=== PATIENT | female | born 1990 | race Caucasian/White ===

== ENCOUNTER → 2023-01-01 14:52 | Outpatient (CLI) | payer BC, SELFPAY ==
--- NOTE | ~2023-01-01 | US_ITS ---
EXAMINATION: US soft tissue UE LT DATE: 01/01/2023 15:06 INDICATION: Left posterior shoulder lump. TECHNIQUE: Multiple grayscale and Doppler ultrasound images of the left upper extremity were obtained . COMPARISON: None FINDINGS: In the patient's area of concern posterior to the shoulder, there is a 2.5 x 0.7 cm subcuta neous mass that is isoechoic to normal subcutaneous fat with equal echotexture. IMPRESSION: 1. 2.5 cm subcutaneous mass posterior to left shoulder, likely a lipoma. Reviewed, dictated and finalized at location A. MANAGER
== END ==
PROVIDERS: PCP Family Medicine; Visit Provider Nurse Practitioner Family
DX: R22.32 Localized swelling, mass and lump, left upper limb (principal)
CPT/HCPCS: 76882

== ENCOUNTER 2023-05-08 12:06 | Emergency (ER) | payer BC, SELFPAY ==
--- NOTE | 2023-05-08 12:19 | ED.ABDPAIN ---
HPI - Abdominal Pain General Chief Complaint: Abdominal Pain Stated Complaint: abdominal pain Source: patient, family and RN notes reviewed History of Present Illness HPI narrative: 32-year-old female presents to urgent care with at side. Patient states on Friday she stood up from a sitting position and coughed at the same time, causing her to have a lightning bolt pain to her left lower quadrant. Patient states the pain radiated to her right lower quadrant and she has been having pain ever since. Patient states this pain is somewhat of a crampy pain. Patient states she was at work today when she vomited once and became very hot. Patient states she thought she was going to pass out. Patient's picked her up from work and brought her here. Patient denies any back pain, vaginal discharge, dysuria, diarrhea, constipation, fevers, or chills. Patient states she had 2 normal BMs today. Patient does have an IUD in which was confirmed this past January. Patient states it is around the time where she would have a menstrual period but states she never has symptoms like this. Related Data Allergies Allergy/AdvReac Type Severity Reaction Status Date / Time nickel Allergy Mild Unknown Verified 05/08/23 12:26 Review of Systems Review of Systems: Pertinent positives and pertinent negatives per HPI. [facility] Past Medical History Medical History (Updated 05/08/23 @ 12:33 by Demetria Esparza APRN) Acute non-recurrent maxillary sinusitis Anemia Encounter for wellness examination in adult Lump of skin of left upper extremity Surgical History Surgical History [place] teeth extracted (~2010) Social History Social History Smoking status: Never smoker Alcohol intake: current Alcohol use details: wine every other weekend Substance use: never Substance use type: does not use Lack of Transportation: No Lack of Food: Never True Current Housing: I Have Housing Concerned About Future Housing: No Difficulty Paying Gas/Electric Bills: No Difficulty Paying for Meds: No Currently Unemployed: No Education: Trade/Vocational Certificate Difficulty w/ Childcare or Family Care: No Comments At the time of my signature, I reviewed and agree with the nursing past medical, surgical, social, and family history. There is no relevant family history pertinent to the patient complaint. Exam Narrative: GENERAL: This is a well-nourished, well-developed patient, in no apparent distress. HEAD: normocephalic, atraumatic. EYES: Sclera clear/white. Vision is grossly intact. EARS: External ears normal, auditory canals clear and without drainage. Hearing grossly intact. NOSE: External nose normal with no obvious nasal discharge, nares without redness, no rhinorrhea. THROAT: Mucous membranes moist, posterior pharynx clear. NECK: Neck supple, non-tender without lymphadenopathy, masses or thyromegaly. CARDIOVASCULAR: Regular rate and rhythm without murmurs, gallops, or rubs. RESPIRATORY: Clear to auscultation. Breath sounds equal bilaterally. No wheezes, rales, or rhonchi. GASTROINTESTINAL: Abdomen soft, tender to LLQ, mid lower, and RLQ abdomen. Pt feels pain in lower abdomen with epigastric palpation. SKIN: warm, intact with no suspicious lesions or rash, good texture and turgor. NEURO: awake, alert, and oriented to person, place and time. There were no obvious focal neurologic abnormalities. EXTREMITIES: No clubbing, cyanosis, or edema. No joint tenderness, effusion, or edema noted. BACK: Nontender without deformity or crepitus. No flank tenderness. Course Course Level of Care: Express Care Visit Vital Signs Vital signs: Vital Signs Temperature 98.2 F 05/08/23 12:38 Pulse Rate 97 05/08/23 12:38 Respiratory Rate 18 05/08/23 12:38 Blood Pressure 121/62 05/08/23 12:38 Pulse Oximetry 100
[2023-05-08 12:38] VITALS: BP 121/62; PULSE 97; RESP 18; TEMP 36.8; O2SAT 100
== END 2023-05-08 12:42 | disposition short-term general hospital (02) ==
PROVIDERS: Emergency Provider Nurse Practitioner Family; PCP Family Medicine
DX: R10.32 Left lower quadrant pain (principal); R10.31 Right lower quadrant pain; R10.30 Lower abdominal pain, unspecified
CPT/HCPCS: 81003; 81025; 99212; G0463

== ENCOUNTER 2023-05-08 12:53 | Emergency (ER) | payer BC, SELFPAY ==
--- NOTE | ~2023-05-08 | CT_ITS ---
EXAMINATION: CT abdomen pelvis w con DATE: 05/08/2023 14:06 INDICATION: Lower abdominal pain TECHNIQUE: Computed tomography (CT) of the abdomen and pelvis was performed with 100 cc Omnipaque 350 intravenous contrast. The dose-length product was 448.16 mGy-cm. Automated exposure control and iter ative reconstruction technique were employed. COMPARISON: None. FINDINGS: Lung bases are unremarkable. Heart size normal. Bilateral breast implants are present. No s ignificant pleural or pericardial effusion. There is abnormal thickening of the splenic flexure of th e colon with associated diverticula and surrounding inflammatory change, consistent with acute divert iculitis. No evidence for perforation or mass. The liver, spleen, pancreas, adrenal glands and kidney s are unremarkable. There is a small fat-containing umbilical hernia. No significant vascular abnorma lity. There is an IUD in the endometrium. No abnormal pelvic masses or fluid collections. Bladder is unremarkable. No lymphadenopathy. Gallbladder is present. IMPRESSION: 1. Acute uncomplicated diverticulitis of the colon at the splenic flexure. Reviewed, dictated and finalized at location L.
[2023-05-08 12:56] VITALS: BP 112/69; PULSE 90; RESP 18; TEMP 36.7; O2SAT 100
[2023-05-08 13:18] LABS: Basophils Percent Auto 0.2 % (0.2-1.2); Eosinophils Absolute Auto 0.1 K/mm3 (0-0.3); Eosinophils Percent Auto 0.8 % (0-4.4); Hemoglobin 14.1 g/dL (12.0-15.0); Immature Granulocyte Absolute 0.05 K/mm3 (0.00-0.031); Immature Granulocyte Percent A 0.3 % (0-0.5); Lymphocytes Absolute Auto 0.91 K/mm3 (0.9-3.2); Lymphocytes Percent Auto 5.5 % (18.3-44.2); Mean Corpuscular HGB Conc 33.6 g/dl (32-36); Mean Corpuscular Hemoglobin 31.5 pg (26-34); Mean Platelet Volume 8.8 fl (7.4-10.4); Monocytes Absolute Auto 0.9 K/mm3 (0.1-0.6); Monocytes Percent Auto 5.6 % (2.6-8.5); Neutrophils Absolute Auto 14.5 K/mm3 (1.3-6.7); Neutrophils Percent Auto 87.6 % (45.5-73.1); Platelet Count Result 242 k/mm3 (150-375); Red Blood Count 4.47 M/mm3 (4.2-5.4); Red Cell Distribution Width 11.9 % (11.5-14.5); White Blood Count 16.6 K/mm3 (4.5-10.0)
[2023-05-08 13:30] LABS: Alanine Aminotransferase 21 U/L (6-35); Albumin Level 4.5 g/dL (3.5-5.1); Alkaline Phosphatase 63 U/L (38-126); Anion Gap 8 mmol/L (8-16); Aspartate Amino Transferase 22 U/L (14-36); Bilirubin,Total 1.3 mg/dL (0.2-1.3); Blood Urea Nitrogen 12 mg/dL (7-17); Calcium 9.4 mg/dL (8.4-10.2); Carbon Dioxide 29 mmol/L (22-30); Chloride 100 mmol/L (98-107); Estimated CRCL calculation 92 ml/min; Estimated Glomerular Filt Rate > 60; Glucose 107 mg/dL (65-110); Lipase 47 U/L (23-300); Potassium 4.3 mmol/L (3.4-5.0); Sodium 137 mmol/L (137-145)
[2023-05-08 13:45] LABS: Appearance Urine Cloudy (Clear); Bacteria Urine 1+ /hpf; Bilirubin Urine Negative (Negative); Blood Urine Trace (Negative); Color Urine Yellow (Yellow); Glucose Urine UA Negative (Negative); Ketones Urine Negative (Negative); Leukocyte Esterase Ur 1+ LEU/UL (Negative); Nitrate Urine Negative (Negative); Non Pathogenic Casts 0-2; Protein Urine Negative (Negative); Specific Grav Ur 1.023 (1.001-1.035); Squamous Epithelial Cell Urine Moderate /hpf (Few); Urobilinogen Urine 0.2 mg/dL (<2.0)
[2023-05-08 13:47] LABS: Add Urine Microscopic? YES
[2023-05-08] MEDS: KETOROLAC 30 MG/ML VIAL (*BKC) IV PUSH (13:56)
[2023-05-08] MEDS: ONDANSETRON INJ 4 MG/2 ML VIAL IV PUSH (13:56)
[2023-05-08] MEDS: SODIUM CHLORIDE 0.9% IV 1,000 ML 999 ML IV CONT (13:56)
[2023-05-08 14:01] VITALS: BP 127/69; PULSE 113; RESP 17; O2SAT 97
--- NOTE | 2023-05-08 14:02 | PC.NURSE ---
Pt to CT scan via stretcher at this time.
--- NOTE | 2023-05-08 14:06 | ED.ABDPAIN ---
HPI - Abdominal Pain General Chief Complaint: Abdominal Pain Stated Complaint: lower abdominal since Friday Time Seen by Provider: 05/08/23 13:39 Source: patient, RN notes reviewed and old records reviewed Mode of arrival: ambulatory Limitations: no limitations History of Present Illness HPI narrative: This is a 32 year old female with history of ovarian cyst who presents for evaluation of left lower abdominal pain. Patient states she developed sudden onset sharp left lower abdominal pain 2 days ago. She has continued to have pain and lower abdominal cramping. She reports her pain worsened today. She states she does not normally experience pelvic cramping and she has IUD. Her pain is so severe it is making her feel like she is going to pass out. She has had nausea and vomiting with her pain. She denies fever, chills, dysuria, abnormal vaginal discharge or urinary symptoms. She reports history of ruptured ovarian cyst when she was younger. Her tripe scraper is Dr. Blackwell. Related Data Allergies Allergy/AdvReac Type Severity Reaction Status Date / Time nickel Allergy Mild Unknown Verified 05/08/23 12:26 Review of Systems Constitutional: Constitutional: Denies weakness Cardiovascular: Cardiovascular: Denies syncope, Denies rapid heart rate, Denies irregular heart rhythm, Denies leg edema and Denies dyspnea Respiratory: Respiratory: Denies chest congestion, Denies hemoptysis, Denies excessive phlegm production and Denies dyspnea Gastrointestinal: Gastrointestinal: Reports abdominal pain, Denies hematochezia, Denies diarrhea, Reports nausea and Reports vomiting Genitourinary: Genitourinary: Denies abnormal vaginal bleeding, Denies hematuria, Denies dysuria and Reports pelvic pain Musculoskeletal: Musculoskeletal: Denies joint swelling, Denies loss of height and Denies muscle weakness Neurologic: Denies syncope, Denies focal weakness and Denies weakness PMFSH Past Medical History Medical History Acute non-recurrent maxillary sinusitis Anemia Encounter for wellness examination in adult Lump of skin of left upper extremity Surgical History Surgical History [place] teeth extracted (~2010) Social History Social History Smoking status: Never smoker Alcohol intake: current Alcohol use details: wine every other weekend Substance use: never Substance use type: does not use Lack of Transportation: No Lack of Food: Never True Current Housing: I Have Housing Concerned About Future Housing: No Difficulty Paying Gas/Electric Bills: No Difficulty Paying for Meds: No Currently Unemployed: No Education: Trade/Vocational Certificate Difficulty w/ Childcare or Family Care: No Exam Const: General: no acute distress and alert Nutritional Appearance: well nourished Orientation/consciousness: patient oriented x3 HENMT: Head: normal to inspection Mouth: Yes Normal oral and palatal mucosa present, Yes lip normal and Yes moist mucous membranes Eyes: EOM: EOMs intact bilaterally Resp: Effort & Inspection: normal respiratory effort Auscultation: clear to auscultation bilaterally Cardio: Rate: regular rate Rhythm: regular rhythm Heart sounds: no murmurs GI: GI Palp: Yes Soft to palpation, Yes Tenderness to palpation present (GI) (lower abdomen, LLQ, suprapubic), No Guarding due to palpation present (GI), No Rigid due to palpation and No Hernia present Auscultation: normal bowel sounds Back/Spine/Pelvis: Back: no CVA tenderness Skin: General skin exam: normal color Rashes: no rashes Wounds: no wounds Neuro: General: patient oriented x3, moves all extremities and CN's II-XI intact bilaterally Extrem: General: normal to inspection Psych: Mental Status: mental status grossly normal Affect: normal affect Attitude: cooperative Course
[2023-05-08] MEDS: metroNIDAZOLE 500 MG/ISO 100ML 500 MG/100 ML BAG 100 MG IVPB (15:03)
[2023-05-08 16:15] VITALS: BP 100/68; PULSE 89; RESP 18; O2SAT 98
== END 2023-05-08 16:35 | disposition home or self-care (01) ==
PROVIDERS: Emergency Medicine; Emergency Provider General Practice; PCP Family Medicine
DX: K57.32 Diverticulitis of large intestine without perforation or abscess without bleeding (principal); Z97.5 Presence of (intrauterine) contraceptive device; Z86.2 Personal history of diseases of the blood and blood-forming organs and certain disorders involving the immune mechanism
CPT/HCPCS: 36415; 74177; 80053; 81001; 81003; 81025; 83690; 85025; 87086; 87088; 96361; 96365; 96367; 96375; 99284; J0696; J1885; J2405; J7030; Q9967

== ENCOUNTER 2023-12-31 01:28 | Day surgery (SDC) | payer BC, SELFPAY ==
[2023-12-29 10:05] VITALS: BMI 27.4
--- NOTE | 2023-12-29 10:09 | PC.NURSE ---
Report to the Outpatient Waiting Room, entrance under the green pavilion located off [facility], at time 1130 on date 12/31/23. Planned Procedure Time: 1330. Time changes happen often and if your time is changed the preop area will call you the afternoon before. - You and your visitor will be asked to self-screen and do not enter if you have any COVID symptoms. - A mask is optional within the hospital at this time. Patients may have clear liquids (water, carbonated beverages, clear teas, apple juice) until 3 hours prior to surgery with a maximum of 20 ounces. - No food from midnight until time of surgery Take the following medications with a SIP of water the morning of surgery: ESCITALOPRAM, INHALER IF NEEDED DO NOT STOP ANY OF YOUR OTHER PRESCRIPTION MEDICATIONS PRIOR TO SURGERY ?EXCEPT THE FOLLOWING Medications to discontinue per physician: N/A Date to take last dose: N/A Please no make-up, nail albanian, hairspray, perfume, deodorant, or body powder the day of surgery. No jewelry (including any body piercings) or valuables the day of surgery, leave them at home. Please take a shower or bath the night before, or the morning of, surgery with an antibacterial soap. Wear comfortable, loose fitting clothing. - Jewelry must be removed prior to entering the operating room. Rings and piercings that are not removed may be cut off. - The hospital will not accept responsibility for valuables. - Please leave all valuables, including medications, at home the day of surgery. If you are going home after surgery, a licensed log truck driver must drive you home. - NO public transportation without another adult if you receive anesthesia. - We recommend that an adult stay with you for 24 hours following discharge. - We also recommend that you do not drive, make important decision, drink alcoholic beverages, or take any drugs that were not prescribed by your health care provider for at least 24 hours after your discharge time. Follow any additional instructions given to you from your surgeon. If you or anyone in your household have experienced Covid symptoms in the past week, please notify your surgeon or the nurse liaison at the phone number below for possible testing. Telephone instructions given to PT - REJI KELLEY and asked if any additional questions and then verbalized understanding. Patient advised to call surgeon office or pre surgery nurse liaison [phone] if any additional questions.
--- NOTE | 2023-12-31 11:08 | P.HP_ITS ---
H&P: HPI History of Present Illness Date/Time: 12/31/23 11:08 Chief Complaint: L shoulder mass Narrative: Su is a 33 y/o female who presents with a left shoulder mass at the request of Dr. Berrios. She first noticed the mass this spring. She states the mass has increased in size. She denies redness, drainage and signs of infection. She also denies injuring herself. Review of Systems Review of Systems: All systems reviewed & are unremarkable except as noted in HPI and below PMFSH Past Medical History Medical History Acute non-recurrent maxillary sinusitis Anemia Anxiety BMI 28.0-28.9,adult Encounter for wellness examination in adult Lump of skin of left upper extremity Surgical History Surgical History [place] teeth extracted (~2010) Social History Social History Years smoked: 2 Smoking status: Former smoker Smoking end date: 11/24/07 Alcohol intake: current Drinks per week: 2 Alcohol use details: wine every other weekend Substance use: never Substance use type: does not use Lack of Transportation: No Lack of Food: Never True Current Housing: I Have Housing Concerned About Future Housing: No Difficulty Paying Gas/Electric Bills: No Difficulty Paying for Meds: No Currently Unemployed: No Education: Trade/Vocational Certificate Difficulty w/ Childcare or Family Care: No Living arrangements: with family Spiritual care concerns: No Meds Home Medications and Allergies Home Medications Medication Instructions Recorded Confirmed Type albuterol sulfate 90 mcg/actuation 1 - 2 puff inhalation Q4H PRN 08/08/23 12/29/23 Rx aerosol inhaler shortness of breath or wheezing #8.5 grams escitalopram oxalate 5 mg tablet 5 mg PO DAILY #90 tabs 08/08/23 12/29/23 Rx (Lexapro) phentermine 37.5 mg tablet 37.5 mg PO DAILY #30 tabs 08/08/23 12/29/23 Rx Allergies Allergy/AdvReac Type Severity Reaction Status Date / Time nickel Allergy Mild Unknown Verified 12/29/23 10:04 Exam Const: General: cooperative, comfortable and no acute distress Resp: Auscultation: clear to auscultation bilaterally Cardio: Rate: regular rate Rhythm: regular rhythm GI: Inspection: normal to inspection Skin: Other: L shoulder sq mass measuring 4x3 cm, well circumscribed, c/w lipoma Assessment and Plan Assessment and plan (1) Mass of skin of left shoulder: Code(s): R22.32 - Localized swelling, mass and lump, left upper limb Status: Acute Assessment and Plan: excisional biopsy in OR today
--- NOTE | 2023-12-31 11:11 | WPDHPUPDATE1 ---
History and Physical Update Update Date/Time: 12/31/23 11:11 History and Physical has been reviewed, including an updated exam of the patient. There are NO changes in the patient's condition. Risks, benefits, and alternatives have been discussed and questions answered. Patient agrees to proceed with procedure.
--- NOTE | 2023-12-31 12:06 | P.PNAN_ITS ---
Anes - Initial Pre Proc Eval Procedure: Operation Date: 12/31/23 13:30 Proposed Procedures p Excisional Biopsy of Left Shoulder Mass - Harirett Taylor MD Date/Time: 12/31/23 12:06 Surgeon: Harriett Taylor MD Pre Op Diagnosis: Left Shoulder Mass Patient Data Age: 33 Gender: F Height: 1.68 m Weight: 77.1 kg Allergies Allergy/AdvReac Type Severity Reaction Status Date / Time nickel Allergy Mild Hives Verified 12/31/23 11:58 Home Medications Medication Instructions Recorded Confirmed Type albuterol sulfate 90 mcg/actuation 1 - 2 puff inhalation Q4H PRN 08/08/23 12/29/23 Rx aerosol inhaler shortness of breath or wheezing #8.5 grams escitalopram oxalate 5 mg tablet 5 mg PO DAILY #90 tabs 08/08/23 12/31/23 Rx (Lexapro) semaglutide 0.25 mg or 0.5 mg (2 0.5 mg subcut WEEKLY 12/31/23 12/31/23 History mg/1.5 mL) subcutaneous pen injector Patient hx anesthesia problems: none Family hx anesthesia problems: none Results Review: All pre-operative results and documents have been reviewed as part of the pre- operative evaluation. FOR[facility]LY [facility], [facility] Past Medical History Medical History Acute non-recurrent maxillary sinusitis Anemia Anxiety BMI 28.0-28.9,adult Encounter for wellness examination in adult Lump of skin of left upper extremity Surgical History Surgical History [place] teeth extracted (~2010) Social History Social History Years smoked: 2 Smoking status: Former smoker Smoking end date: 11/24/07 Alcohol intake: current Drinks per week: 2 Alcohol use details: wine every other weekend Substance use: never Substance use type: does not use Lack of Transportation: No Lack of Food: Never True Current Housing: I Have Housing Concerned About Future Housing: No Difficulty Paying Gas/Electric Bills: No Difficulty Paying for Meds: No Currently Unemployed: No Education: Trade/Vocational Certificate Difficulty w/ Childcare or Family Care: No Living arrangements: with family Spiritual care concerns: No Anes - Eval Final PreProcedure Day of Procedure 12/31/23 12:06 Patient weight: overweight Heart: regular rate and rhythm Lungs: clear to auscultation Airway: Mallampati scale class II Neurological: alert and oriented Last oral intake: >/= 8 hours ASA classification: II Emergent: no Anesthetic plan: proceed Anesthesia type and monitoring: general GIVS and standard monitoring Results Review: All pre-operative results and documents have been reviewed as part of the pre- operative evaluation. Informed Consent: The patient's anesthetic plan and its attendant risks and benefits were discussed with the patient/family/POA. Questions were solicited and answers provided to the satisfaction of the patient/family/POA.
[2023-12-31] MEDS: LACTATED RINGERS 1,000 ML 30 ML IV CONT (12:13)
[2023-12-31 12:18] VITALS: BP 132/78; PULSE 61; RESP 16; TEMP 36.6; O2SAT 100
[2023-12-31] MEDS: ceFAZolin 2 GM/D5W 50 ML 2 GM/50 ML BAG IVPB (12:54)
[2023-12-31] MEDS: BUPIVACAINE/EPINEPHRINE 0.5% 50 ML VIAL 30 ML INFILTRATE (13:09)
--- NOTE | 2023-12-31 13:26 | W.PM.PROC2 ---
Procedure Note - Detailed Date of Procedure 12/31/23 Pre-op Diagnosis Left Shoulder Mass Post-op Diagnosis Same Procedure Performed excisional biopsy left shoulder mass most consistent with lipoma measuring 4 x 3 cm Surgeon Harriett Taylor MD Anesthesia General and Local Indications 33-year-old female presenting with a left shoulder mass measuring 4 x 3 cm. The patient reports the mass has been slowly enlarging in size and has become somewhat symptomatic. Findings 4 x 3 cm left shoulder subcutaneous mass most consistent with lipoma Description of Procedure The patient was taken to the operating room and placed in the supine position. After adequate induction of GIVS anesthesia the patient was prepped and draped in the normal sterile fashion. A time-out was then done to verify the patient's identity, as well as the procedure being performed. I began by localizing the area in and around this mass in the left posterior shoulder. This mass was noted to measure approximately 4 x 3 cm. I then made an incision over the mass and gained access to the mass in the subcutaneous tissue. A well-circumscribed mass was noted in the subcutaneous tissue, most consistent with lipoma. Using both blunt and sharp dissection, I was able to excise the mass in full. Will now be sent to pathology for further review. I then gained hemostasis with the Bovie cautery. No other pathology was noted. I then closed the subcutaneous tissue with 3-0 Vicryl suture. The skin was closed with 4-0 Monocryl subcuticular suture. The patient tolerated the procedure well and was alert and awake in the operating room postoperatively. She will be transferred to the recovery room in stable condition. Estimated Blood Loss 5 Drains No Packing No Pathology Yes Complications No immediate complications Condition Stable Disposition PACU [facility] Billing Surgery - Charge Forward: Surgery Billing
[2023-12-31 13:30] VITALS: BP 107/57; PULSE 78; RESP 12
[2023-12-31 13:54] VITALS: BP 103/73; PULSE 73; RESP 16
[2023-12-31 14:11] VITALS: BP 104/61; PULSE 84; RESP 16
== END 2023-12-31 14:15 | disposition home or self-care (01) ==
PROVIDERS: PCP Family Medicine; Visit Provider Surgery
PROC: (CPT 23071; principal; 2023-12-31 13:30)
DX: D17.22 Benign lipomatous neoplasm of skin and subcutaneous tissue of left arm (principal); F41.9 Anxiety disorder, unspecified; D64.9 Anemia, unspecified; Z79.51 Long term (current) use of inhaled steroids; Z79.85 Long-term (current) use of injectable non-insulin antidiabetic drugs; Z87.891 Personal history of nicotine dependence
CPT/HCPCS: 23071; 88304; J0690; J2250; J2405; J3010; J7120

== ENCOUNTER 2024-12-08 15:48 | Emergency (ER) | payer BC, SELFPAY ==
--- NOTE | ~2024-12-08 | XR_ITS ---
EXAMINATION: XR chest 2V 12/08/2024 16:15 INDICATION: Cough for 5 days PROCEDURE: 2 view chest COMPARISON: 05/03/2013 FINDINGS: The lungs are clear. The cardiomediastinal silhouette is within normal limits. There are no pleural effusions. There is no pneumothorax suspected. There are breast implants. IMPRESSION: 1: NO ACUTE CARDIOPULMONARY DISEASE. Reviewed, dictated and finalized at location A. RN
[2024-12-08 15:54] VITALS: BP 131/84; PULSE 87; RESP 18; TEMP 36.1; O2SAT 100
--- NOTE | 2024-12-08 16:09 | ED_ITS ---
HPI - General Adult General Chief complaint: Upper Respiratory Infection Stated complaint: sob and coughing Source: patient Mode of arrival: ambulatory Limitations: no limitations History of Present Illness HPI narrative: Patient presents for evaluation of sick symptoms. Symptom onset 5 days ago. She reports productive cough of clear sputum, shortness of breath, and pleuritic chest and back pain. No fever, chills, nausea, vomiting or diarrhea. She is not aware of any specific recent sick contacts although she was recently on a flight back from [facility]. She has an underlying history of asthma. she has been using albuterol inhaler and nebulizer solution. Symptoms persist. She does not smoke cigarettes but does smoke marijuana. She was given azithromycin by her primary provider which she has been taking as directed. Related Data Allergies Allergy/AdvReac Type Severity Reaction Status Date / Time nickel Allergy Mild Hives Verified 12/08/24 15:50 Review of Systems Review of Systems: CONSTITUTIONAL: Denies fever, chills, or sweats. EYES: Denies visual changes, redness, or discharge. ENT: Denies rhinorrhea, congestion, sore throat, or otalgia. CARDIOVASCULAR: Denies chest pain, palpitations, or edema. RESPIRATORY: Reports cough, SOB and pleuritic chest and back pain. GASTROINTESTINAL: Denies abdominal pain, nausea, vomiting, or diarrhea. GENITOURINARY: Denies dysuria or hematuria. SKIN: Denies rash or itching. MUSCULOSKELETAL: Denies back pain, joint pain, or myalgia. NEUROLOGIC: Denies headache, numbness, dizziness, or weakness. PSYCHIATRIC: Denies anxiety or depression. [facility] Past Medical History Medical History Diverticulitis of colon Asthma Anxiety BMI 28.0-28.9,adult Lump of skin of left upper extremity Acute non-recurrent maxillary sinusitis Encounter for wellness examination in adult Anemia Surgical History Surgical History Hx of excision of mass excisional biopsy left shoulder mass most consistent with lipoma measuring 4 x 3 cm 12/31/23 [facility] [place] teeth extracted (~2010) Family History Family History Mother Family history non-contributory Social History Social History Years smoked: 2 Smoking status: Former smoker Smoking end date: 11/24/07 Alcohol intake: current Drinks per week: 2 Alcohol use details: wine every other weekend Substance use: never Substance use type: does not use Lack of Transportation: No Lack of Food: Never True Current Housing: I Have Housing Concerned About Future Housing: No Difficulty Paying Gas/Electric Bills: No Difficulty Paying for Meds: No Currently Unemployed: No Education: Trade/Vocational Certificate Difficulty w/ Childcare or Family Care: No Living arrangements: with family Spiritual care concerns: No Exam Narrative: GENERAL: Well-appearing, well-nourished, and in no acute distress. HEAD: Normocephalic, atraumatic. EYES: PERRLA and EOMI. ENT: Nares clear, no rhinorrhea or epistaxis. Mucous membranes moist. Oropharynx without tonsillar hypertrophy exudate or other lesions. Bilateral TMs pearly torres nonbulging NECK: Supple. No adenopathy or masses. No carotid bruits or JVD CHEST: Clear to auscultation. No respiratory distress. No wheezes rales or rhonchi HEART: Regular rate and rhythm. No murmur heard. Normal peripheral pulses. ABDOMEN: Soft, nontender, nondistended, normal active bowel sounds. EXTREMITIES: Normal range of motion. No edema. SKIN: Warm, dry, no rash. NEURO: No focal deficits. Alert and oriented x3. PSYCH: Normal mood and affect. Course Course Emergency Course: This is a 34-year-old patient with history of asthma the presented for respiratory symptoms. She declined COVID and flu testing. CXR obtained and n ormal. She is already on azithromycin. Will add prednisone. Follow up with primary provider. Saturations 100% on RA and she is not in any distress. She was advised to go to the ER for SOB or worsening symptoms. Pt in agreement with plan of care. Level of Care: Express Care Visit Vital Signs Vital signs: Vital Signs Temperature 36.1 C L 12/08/24 15:54 Pulse Rate 87 12/08/24 15:54 Respiratory Rate 18 12/08/24 15:54 Blood Pressure 131/84 12/08/24 15:54 Pulse Oximetry 100 12/08/24 15:54 Oxygen Delivery Room Air 12/08/24 15:54 Temperature 36.1 C L 12/08/24 15:54 Pulse Rate 87 12/08/24 15:54 Respiratory Rate 18 12/08/24 15:54 Blood Pressure 131/84 12/08/24 15:54 Pulse Oximetry 100 12/08/24 15:54 Oxygen Delivery Room Air 12/08/24 15:54 Medical Decision Making Vital Signs Vital Signs: Vital Signs Temperature 36.1 C L 12/08/24 15:54 Pulse Rate 87 12/08/24 15:54 Respiratory Rate 18 12/08/24 15:54 Blood Pressure 131/84 12/08/24 15:54 Pulse Oximetry 100 12/08/24 15:54 Oxygen Delivery Room Air 12/08/24 15:54 Temperature 36.1 C L 12/08/24 15:54 Pulse Rate 87 12/08/24 15:54 Respiratory Rate 18 12/08/24 15:54 Blood Pressure 131/84 12/08/24 15:54 Pulse Oximetry 100 12/08/24 15:54 Oxygen Delivery Room Air 12/08/24 15:54 Imaging Data Radiologist's impression: EXAMINATION: XR chest 2V 12/08/2024 16:15 INDICATION: Cough for 5 days PROCEDURE: 2 view chest COMPARISON: 05/03/2013 FINDINGS: The lungs are clear. The cardiomediastinal silhouette is within normal limits. There are no pleural effusions. There is no pneumothorax suspected. There are breast implants. IMPRESSION: 1: NO ACUTE CARDIOPULMONARY DISEASE. Discharge Plan Discharge Clinical Impression: Asthma exacerbation, Upper respiratory infection, viral Patient Disposition: Home, Self-Care Condition: Stable Instructions: Antibiotic Form, Asthma (ED), Viral Syndrome (ED) Patient Language: Turkmen Prescriptions: New prednisone 50 mg tablet 50 mg PO DAILY Qty: 5 0RF No Action albuterol sulfate 90 mcg/actuation HFA aerosol inhaler 1 - 2 puff inhalation Q4H PRN (Reason: shortness of breath or wheezing) Qty: 8.5 5RF bupropion HCl [Wellbutrin XL] 150 mg tablet extended release 24 hr 150 mg PO QAM Qty: 30 5RF escitalopram oxalate [Lexapro] 5 mg tablet 5 mg PO DAILY Qty: 30 11RF azithromycin 250 mg tablet See Rx Instructions PO .COMPLEX Qty: 6 0RF Rx Instructions: take 500 mg today (day 1), then 250 mg for 4 days (days 2-5) PO Follow-up/Referrals: Chi Berrios MD [Primary Care Provider] - Time of Disposition: 16:29
== END 2024-12-08 16:31 | disposition home or self-care (01) ==
PROVIDERS: Emergency Provider Nurse Practitioner; PCP Family Medicine
DX: J45.901 Unspecified asthma with (acute) exacerbation (principal); J06.9 Acute upper respiratory infection, unspecified; J45.909 Unspecified asthma, uncomplicated; F12.90 Cannabis use, unspecified, uncomplicated; Z87.891 Personal history of nicotine dependence
CPT/HCPCS: 71046; 99213; G0463

== ENCOUNTER 2025-01-02 10:16 | Emergency (ER) | payer BC, SELFPAY ==
--- OUTSIDE RECORDS SUMMARY | 2025-01-02 10:18 | XMS_ITS | Referral Summary ---
Author Organization [facility] [employer] [facility] Address [address] [place] [address] Care Team Providers Care Cargo Service Agent Name Role Phone Nithin Merida MD Primary Care Provider [phone] [facility],non-owned Affiliates and Associated Physician Practices is amultiple site organization consisting of ambulatory clinics and hospital sitesin [place], [place], [place] and [place]. This disclosure is being madepursuant to the Care Everywhere program and may not contain all information available regarding this patient. Last updated 18.[facility] Allergies Active Allergy Reactions Criticality Noted Date Comments Nickel Rash,Itching High 03/14/2019 Nickel Rash,Itching Medium 03/14/2019 Medications * Be aware that medications may not be up to date on this document. Alwaysverify current medications with the patient. 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 Resolved Problems Problem Noted Date Diagnosed Date Resolved Date Pneumonia 03/15/2019 04/14/2019 Overview (03/15/2019): CAP incidentally noted on CXR Azithromycin 500mg QD x3d Premature labor 03/14/2019 03/15/2019 Immunizations Name Administration Dates Next Due TDAP (7yrs+) 03/16/2019 Social History Tobacco Use Types Packs/Day Years Used Date Smoking Tobacco: Former Cigarettes Smokeless Tobacco: Never Tobacco Cessation:Counseling Given: Yes Alcohol Use Standard Drinks/Week Comments No 0 (1 standard drink = 0.6 oz pur e alcohol) Sex and Gender Information Value Date Recorded Sex Assigned at Not on file Gender Identity Not on file Sexual Orientation Not on file Last Filed Vital Signs Vital Sign Reading Time Taken Comments Blood Pressure 120/70 03/17/2019 9:30 AM CDT Pulse 84 03/17/2019 9:30 AM CDT Temperature 36.8 C (98.2 F) 03/17/2019 9:30 AM CDT Respiratory Rate 18 03/17/2019 9:30 AM CDT Oxygen Saturation 96% 03/16/2019 11:30 PM CDT Inhaled Oxygen Concentration - - Weight 82 kg (180 lb 11.2 oz) 03/14/2019 4:35 PM CDT Height 167.6 cm (5' 6 ) 03/14/2019 4:35 PM CDT Body Mass Index 29.17 03/14/2019 4:35 PM CDT Functional Status Functional Status Response Date of Assess ment Is person deaf or have serious hearing difficult y? No 03/17/2019 Is person blind or have serious difficulty seein g? No 03/17/2019 Does person have serious dif ficulty walking/climbing stairs? No 03/17/2019 Does person have difficulty dressing/bathing? No 03/17/2019 Does person have difficulty doing errands alone? No 03/17/2019 Cognitive Status Response Date of Assessm ent Does person have difficulty concentrating/remembering/making decisions? No 03/17/2019 Plan of Treatment Not on file Advance Directives * Full Code (Latest Code Status on File) Date Activated Date Inactivated Comments 03/14/2019 4:29 PM 03/17/2019 4:06 PM * Full Code Date Activated Date Inactivated Comments 03/14/2019 12:05 AM 03/14/2019 4:56 PM Care Teams Cargo Service Agent Relationship Specialty Start Date End Date Nithin Merida MD [address] [place] [address] PCP - General Family Medicine 03/14/19
--- OUTSIDE RECORDS SUMMARY | 2025-01-02 10:18 | XMS_ITS | Clinical Summary ---
Author Organization [facility] Address [address] [place] [address] Care Team Providers Care Mixer [employer] Name Role Phone Nithin Merida MD Primary Care Provider [phone] Source Comments [facility],non-owned Affiliates and Associated Physician Practices is amultiple site organization consisting of ambulatory clinics and hospital sitesin [place], [place], [place] and [place]. This disclosure is being madepursuant to the Care Everywhere program and may not contain all information available regarding this patient. Last updated 18.[facility] Allergies Active Allergy Reactions Criticality Noted Date [...] Mass Index 29.17 03/14/2019 4:35 PM CDT Plan of Treatment Health Maintenance Due Date Last Done Comments PAP SMEAR 1989 HIV SCREENING 2004 HEPATITIS C SCREENING 06/16/2007 HEPATITIS B VACCINE (1 of 3 - 19+ 3-dose series) 2008 COVID-19 VACCINE ( - 2023-2 5 season) 2024 INFLUENZA VACCINE (#1) 2024 DEPRESSION SCREENING 11/24/2024 DTAP/TDAP/TD VACCINES (2 - T d or Tdap) 03/16/2029 03/16/2019 ZOSTER VACCINE (1 of 2) 2039 HIB VACCINE Aged Out No longer eligi ble based on patient's age to complete this topic HPV VACCINE Aged Out No longer eligi ble based on patient's age to complete this topic MENINGOCOCCAL (Group B) VACCINE Aged Out No longer eligible based on patient's age to complete this topic MENINGOCOCCAL VACCINE Aged Out No afia cal eligible based on patient's age to complete this topic PNEUMOCOCCAL VACCINE Aged Out No long er eligible based on patient's age to complete this topic Advance Directives * Full Code (Latest Code Status on File) Date Activated Date Inactivated Comments 03/14/2019 4:29 PM 03/17/2019 4:06 PM * Full Code Date Activated Date Inactivated Comments 03/14/2019 12:05 AM 03/14/2019 4:56 PM Care Teams [employer] Relationship Specialty Start Date End Date Nithin Merida MD [address] [place] [id number] PCP - General Family Medicine 03/14/19
--- OUTSIDE RECORDS SUMMARY | 2025-01-02 10:18 | XMS_ITS | Patient Health Summary ---
Author Organization [facility] Add2paper Address [address] [place] [address] Care Team Providers Care Mark Up Designer Name Role Phone Nithin Merida MD Primary Care Provider [phone] Note from [facility],non-owned Affiliates and Associated Physician Practices is amultiple site organization consisting of ambulatory clinics and hospital sitesin [place], [place], [place] and [place]. This disclosure is being madepursuant to the Care Everywhere program and may not contain all information available regarding this patient. Last updated 18.[facility] Allergies * Nickel(Rash,Itching) -High Criticality * Nickel(Rash,Itching) -Medium Criticality Medications * Be aware that medications may not be up to date on this document. Alwaysverify current medications with the patient. 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 Resolved Problems Problem Noted Date Diagnosed Date Resolved Date Pneumonia 03/15/2019 04/14/2019 Premature labor 03/14/2019 03/15/2019 Immunizations * TDAP (7yrs+)(Given 03/16/2019) Social History Tobacco Use Types Packs/Day Years [...] Mass Index 29.17 03/14/2019 4:35 PM CDT Procedures * CARDIAC RHYTHM STRIP ORDER(Performed 03/18/2019) * IMAGING/RADIOLOGY/XRAY RESULTS ORDER(Performed 03/18/2019) * GLUCOSE - POINT OF CARE(Performed 03/17/2019) * HGB HCT PANEL(Performed 03/16/2019) * GLUCOSE - POINT OF CARE(Performed 03/16/2019) * BLOOD GASES CORD MARK (ISTAT)(Performed 03/15/2019) * BLOOD GASES CORD ART (ISTAT)(Performed 03/15/2019) * GLUCOSE - POINT OF CARE(Performed 03/15/2019) * GLUCOSE - POINT OF CARE(Performed 03/15/2019) * GLUCOSE - POINT OF CARE(Performed 03/15/2019) * GLUCOSE - POINT OF CARE(Performed 03/15/2019) * GLUCOSE - POINT OF CARE(Performed 03/15/2019) * HIV-1 HIV-2 ANTIBODY + HIV P24 AG RAPID PNL(Performed 03/15/2019) * GLUCOSE - POINT OF CARE(Performed 03/15/2019) * NEURAXIAL BLOCK(Performed 03/15/2019) * GLUCOSE - POINT OF CARE(Performed 03/15/2019) * GLUCOSE - POINT OF CARE(Performed 03/15/2019) * GLUCOSE - POINT OF CARE(Performed 03/15/2019) * GLUCOSE - POINT OF CARE(Performed 03/15/2019) * XR CHEST 1VW PORTABLE(Performed 03/15/2019) Performed for Oxygen desaturation * BASIC METABOLIC PANEL (CALCIUM TOTAL)(Performed 03/15/2019) * MAGNESIUM BLOOD(Performed 03/15/2019) * GLUCOSE - POINT OF CARE(Performed 03/15/2019) * GLUCOSE - POINT OF CARE(Performed 03/14/2019) * RUBELLA ANTIBODY IGG(Performed 03/14/2019) * SYPHILIS ANTIBODY CASCADING REFLEX(Performed 03/14/2019) * HEPATITIS B SURFACE ANTIGEN W RFLX CONFIRMATION(Performed 03/14/2019) * CBC W AUTO DIFFERENTIAL(Performed 03/14/2019) * OBSTETRIC PANEL (BEAKER)(Performed 03/14/2019) * HEMOGLOBIN A1C(Performed 03/14/2019) * BLOOD TYPE VERIFICATION(Performed 03/14/2019) * TYPE + SCREEN PANEL(Performed 03/14/2019) * GLUCOSE - POINT OF CARE(Performed 03/14/2019) * GLUCOSE - POINT OF CARE(Performed 03/14/2019) * GLUCOSE - POINT OF CARE(Performed 03/14/2019) * BASIC METABOLIC PANEL (CALCIUM TOTAL)(Performed 03/14/2019) * MAGNESIUM BLOOD(Performed 03/14/2019) * GLUCOSE - POINT OF CARE(Performed 03/14/2019) * GLUCOSE - POINT OF CARE(Performed 03/14/2019) * CHLAMYDIA + GC AMPLIFIED PROBE(Performed 03/14/2019) * URINE DRUG SCREEN IMMUNOASSAY(Performed 03/14/2019) * TRICHOMONAS RAPID TEST(Performed 03/14/2019) * CULTURE STREP B(Performed 03/14/2019) * URINE MICROSCOPIC ONLY REFLEX TO CULTURE(Performed 03/14/2019) * URINALYSIS REFLEX MICROSCOPIC REFLEX CULTURE(Performed 03/14/2019) * CULTURE URINE(Performed 03/14/2019) * TYPE + SCREEN PANEL(Performed 03/14/2019) * COMPREHENSIVE METABOLIC PANEL(Performed 03/14/2019) * CBC W AUTO DIFFERENTIAL(Performed 03/14/2019) * DERMATOPATHOLOGY(Performed 05/25/2012) Results * CARDIAC RHYTHM STRIP ORDER (03/18/2019 1:27 PM CDT) Narrative 03/18/2019 1:27 PM CDT Ordered by an unspecified provider. Scanned Document CARDIAC SERVICES ORD ERABLES * IMAGING/RADIOLOGY/XRAY RESULTS ORDER (03/18/2019 10:41 AM CDT) Anatomical Region Laterality Modality Other Narrative 03/18/2019 10:41 AM CDT Ordered by an unspecified provider. Scanned Document IMAGING * GLUCOSE - POINT OF CARE (03/17/2019 6:37 AM CDT) Only the most recent of19 resultswithin the time period is included. [facility] Glucose WB/POC 79 70 - 106 mg/dL 03/17/2019 3:57 PM CDT [facility] Blood BLOOD SPECIMEN / Unknown 03/17/2019 6:37 AM CDT 03/17/2019 3:57 PM CDT Ranulfo Burton MD LAB - POINT OF CARE ORDERABLES Performing Organization Address City/[facility] Co de Phone Number [facility] [address] [place] [address] * (ABNORMAL) HGB HCT PANEL (03/16/2019 12:41 PM CDT) [facility] Hemoglobin 9.9(L) 12.0 - 15.6 gm/dL 03/16/2019 1:14 PM CDT [facility] Hematocrit 30.3(L) 35.9 - 45.5 % 03/16/2019 1:14 PM CDT [facility] Blood BLOOD SPECIMEN / Unknown Venipuncture / Unknown 03/16/2019 12:41 PM CDT 03/16/2019 1:04 PM CDT Shante Simon MD LAB - HEMATOLOGY ORDERABLES Performing Organization Address City/[facility] Co de Phone Number [facility] [address] [place] [address] * (ABNORMAL) BLOOD GASES CORD MARK (ISTAT) (03/15/2019 5:10 PM CDT) [facility] pH Cord Venous POCT 7.37 7.28 - 7.40 pH 03/15/2019 5:19 PM CDT [facility] pCO2 Cord Venous POCT 44 35 - 45 mmHg 03/15/2019 5:19 PM CDT [facility] pO2 Cord Venous POCT 26 22 - 33 mmHg 03/15/2019 5:19 PM CDT [facility] HCO3 Cord Arterial POCT 25.3(H) 22 - 24 mmol/L 03/15/2019 5:19 PM CDT [facility] BE Cord Venous POCT Calc 0 -6.4 - 1.6 mmol/L 03/15/2019 5:19 PM CDT [facility] TCO2 Cord Venous POCT 27 22 - 30 mmol/L 03/15/2019 5:19 PM CDT [facility] O2 Saturation % Cord Venous Calc POCT 46 % 03/15/2019 5:19 PM CDT [facility] Site CORD MARK 03/15/2019 5:19 PM CDT [facility] Sample iSTAT CORD V 03/15/2019 5:19 PM T [facility] Blood CORD BLOOD SPECIMEN / Unknown 03/15/2019 5:10 PM CDT 03/15/2019 5:19 PM CDT Ranulfo Burton MD LAB - POINT OF CARE ORDERABLES Performing Organization Address City/State/[facility] Co de Phone Number [facility] [address] [place] [address] * (ABNORMAL) BLOOD GASES CORD ART (ISTAT) (03/15/2019 5:06 PM CDT) pH Cord Arterial POCT 7.22 7.20 - 7.34 pH 03/15/2019 5:19 PM CDT [facility] pCO2 Cord Arterial POCT 61.9(H) 45 - 55 mmHg 03/15/2019 5:19 PM CDT [facility] pO2 Cord Arterial POCT 8(L) 12 - 25 mmHg 03/15/2019 5:19 PM CDT [facility] HCO3 Cord Arterial POCT 25.2(H) 22 - 24 mmol/L 03/15/2019 5:19 PM CDT [facility] BE Cord Arterial POCT -4(L) -2.9 - 8.3 mmol/L 03/15/2019 5:19 PM CDT [facility] TCO2 Cord Arterial POCT 27 mmol/L 03/15/2019 5:19 PM CDT [facility] O2 Saturation Cord Art % Calc POCT 5 % 03/15/2019 5:19 PM CDT [facility] Site CORD ART 03/15/2019 5:19 PM CDT [facility] Sample iSTAT CORD A 03/15/2019 5:19 PM CDT [facility] Blood CORD BLOOD SPECIMEN / Unknown 03/15/2019 5:06 PM CDT 03/15/2019 5:19 PM CDT Ranulfo Burton MD LAB - POINT OF CARE ORDERABLES Performing Organization Address [facility] Co de Phone Number [facility] [address] [place] [phone] * HIV-1 HIV-2 ANTIBODY + HIV P24 AG RAPID PNL (03/15/2019 10:58 AM CDT) HIV1/2 Ab + P24 Ag Rapid Non Reactive Non Reactive 03/15/2019 12:25 PM CDT [facility] Blood BLOOD SPECIMEN / Unknown Venipuncture / Unknown 03/15/2019 10:58 AM CDT 03/15/2019 11:18 AM CDT Narrative [facility] - 03/15/2019 12:25 PM CDT No Laboratory evidence of HIV infection. Shante Simon MD LAB - SEROLOGY OR DERABLES Performing Organization Address City/[facility] Co de Phone Number [facility] [address] [place] [phone] * XR CHEST 1VW PORTABLE (03/15/2019 5:30 AM CDT) Anatomical Region Laterality Modality Chest Radiographic Elif ging 03/15/2019 8:07 AM CDT Impressions 03/15/2019 8:08 AM CDT Suspect multilobar pneumonia in the right upper lobe and right middle lobe. Reading Radiologist: Lui Calderon MD on 03/15/2019 at 8:08 AM Narrative 03/15/2019 8:08 AM CDT CHEST, ONE VIEW AP UPRIGHT HISTORY: Hypoxemia COMPARISON: None. FINDINGS: There is a patchy pulmonary consolidation in the right upper lobe abutting the minor fissure, and a second patchy opacity in the right middle lobe obscuring the right heart border, which are worrisome for pneumonia. The remainder of the lungs are clear. The heart size is not enlarged. Mediastinum is not widened. The pulmonary vasculature is within normal limits. No pneumothorax, pleural effusion or fractures identified. The right diaphragmatic leaf is mildly elevated. Procedure Note Lui Calderon MD - 03/15/2019 CHEST, ONE VIEW AP UPRIGHT HISTORY: Hypoxemia COMPARISON: None. FINDINGS: There is a patchy pulmonary consolidation in the right upper lobe abutting the minor fissure, and a second patchy opacity in the right middle lobe obscuring the right heart border, which are worrisome for pneumonia. The remainder of the lungs are clear. The heart size is not enlarged. Mediastinum is not widened. The pulmonary vasculature is within normal limits. No pneumothorax, pleural effusion or fractures identified. The right diaphragmatic leaf is mildly elevated. IMPRESSION Suspect multilobar pneumonia in the right upper lobe and right middle lobe. Reading Radiologist: Lui Calderon MD on 03/15/2019 at 8:08 AM Lisandra Segura MD DIAGNOSTIC IMAGING O RDERABLES * (ABNORMAL) BASIC METABOLIC PANEL (CALCIUM TOTAL) (03/15/2019 5:30 AM CDT) Only the most recent of2 resultswithin the time period is included. Glucose 161(H) 74 - 106 mg/dL 03/15/2019 6:37 AM CDT [facility] Sodium 132(L) 136 - 145 mmol/L 03/15/2019 6:37 AM CDT [facility] Potassium 4.0 3.5 - 5.1 mmol/L 03/15/2019 6:37 AM CDT [facility] Chloride 100 98 - 107 mmol/L 03/15/2019 6:37 AM CDT [facility] CO2 25 22 - 31 mmol/L 03/15/2019 6:37 AM CDT [facility] Calcium 5.7(LL) 8.5 - 10.1 mg/dL 03/15/2019 6:37 AM CDT [facility] Anion Gap 7(L) 8 - 16 mmol/L 03/15/2019 6:37 AM CDT [facility] BUN 5(L) 7 - 21 mg/dL 03/15/2019 6:37 AM CDT [facility] Creatinine 0.55 0.50 - 1.30 mg/dL 03/15/2019 6:37 AM CDT [facility] eGFR by MDRD >60 >60 mL/min/1.7 3m2 03/15/2019 6:37 AM CDT [facility] eGFR by MDRD >60 >60 mL/min/1.7 3m2 03/15/2019 6:37 AM CDT [facility] Blood BLOOD SPECIMEN / Unknown Venipuncture / Unknown 03/15/2019 5:30 AM CDT 03/15/2019 5:50 AM CDT Lisandra Segura MD LAB - CHEMISTRY [facility] Performing Organization Address [facility] Co de Phone Number [facility] [address] [place] [phone] * (ABNORMAL) MAGNESIUM BLOOD (03/15/2019 5:30 AM CDT) Only the most recent of2 resultswithin the time period is included. Pathologist [facility] [place] Magnesium 6.0(HH) 1.6 - 2.6 mg/dL 03/15/2019 6:38 AM CDT [facility] Blood BLOOD SPECIMEN / Unknown Venipuncture / Unknown 03/15/2019 5:30 AM CDT 03/15/2019 5:50 AM CDT Lisandra Segura MD LAB - CHEMISTRY [facility] Performing Organization Address [facility]/ZIP Co de Phone Number [facility] [address] [place], [place] [id number] * SYPHILIS ANTIBODY CASCADING REFLEX (03/14/2019 8:31 PM CDT) Pathologist [facility] Treponema pallidum Antibody Non Reactive Non Reactive 03/14/2019 9:24 PM CDT [facility] Comment: No Laboratory evidence of syphilis infection. Note: Circulating antibodies may be low or undetectable in early infection. If recent exposure is suspected, re-draw sample in 2-4 weeks and repeat testing. Blood BLOOD SPECIMEN / Unknown Lab Venipuncture / Unknown 03/14/2019 8:31 PM CDT 03/14/2019 8:37 PM CDT Shavon Velez MD LAB - SEROLOGY ORDER JESUS Performing Organization Address City/[facility] Co de Phone Number [facility] [address] [place] [address] * RUBELLA ANTIBODY IGG (03/14/2019 8:31 PM CDT) Rubella Antibody 1.88 Immune >0.99 index 03/16/2019 8:22 AM CDT [facility] ([facility]) Comment: Non-immune <0.90 Equivocal 0.90 - 0.99 Immune >0.99 Blood BLOOD SPECIMEN / Unknown Lab Venipuncture / Unknown 03/14/2019 8:31 PM CDT 03/14/2019 8:37 PM CDT Narrative [facility] ([facility]) - 03/16/2019 8:22 AM CDT Performed at: 01 - [facility] [address] [place], [place] [id number] Phone Manager: Jeyson Howard PhD, Phone: [phone] Shavon Velez MD LAB - SEROLOGY ORDER JESUS Performing Organization Address City/[facility] de Phone Number [facility] ([facility]) [address] [place] [address] * HEMOGLOBIN A1C (03/14/2019 8:31 PM CDT) Pathologist [facility] Hemoglobin A1c 4.9 4.2 - 6.3 % 03/14/2019 9:46 PM CDT [facility] Estimated Average Glucose 94 mg/dL 03/14/2019 9:46 PM CDT [facility] Blood BLOOD SPECIMEN / Unknown Lab Venipuncture / Unknown 03/14/2019 8:31 PM CDT 03/14/2019 8:37 PM CDT Narrative [facility] - 03/14/2019 9:46 PM CDT Attention clinician: Reference Range has changed. Shavon Velez MD LAB - CHEMISTRY [facility] Organization Address City/State/ZIP Co de Phone Number [facility] [address] [place], [place] [id number] * (ABNORMAL) CBC W AUTO DIFFERENTIAL (03/14/2019 8:31 PM CDT) Only the most recent of2 resultswithin the time period is included. WBC 23.0(H) 4.4 - 10.7 x10E9/L 03/14/2019 8:47 PM CDT [facility] WBC Corrected x10E9/L 03/14/2019 8:47 PM CDT [facility] RBC 3.46(L) 3.80 - 5.20 x10E12/L 03/14/2019 8:47 PM CDT [facility] Hemoglobin 9.9(L) 12.0 - 15.6 gm/dL 03/14/2019 8:47 PM CDT [facility] Hematocrit 31.5(L) 35.9 - 45.5 % 03/14/2019 8:47 PM CDT [facility] MCV 91.0 80.7 - 98.3 fl 03/14/2019 8:47 PM CDT [facility] MCH 28.6 26.7 - 34.0 pg 03/14/2019 8:47 PM CDT [facility] MCHC 31.4 30.8 - 35.9 gm/dL 03/14/2019 8:47 PM CDT [facility] Platelet Count 269 153 - 416 x10E9/L 03/14/2019 8:47 PM CDT [facility] RDW-CV 12.7 12.1 - 14.9 % 03/14/2019 8:47 PM CDT [facility] MPV 9.3(L) 9.4 - 12.9 fl 03/14/2019 8:47 PM CDT [facility] Neutrophils % 91.4(H) 44.0 - 73.0 % 03/14/2019 8:47 PM CDT [facility] Lymphocytes % 3.7(L) 20.0 - 43.0 % 03/14/2019 8:47 PM CDT [facility] Monocytes % 4.0(L) 5.0 - 13.0 % 03/14/2019 8:47 PM CDT [facility] Eosinophils % 0.0 0.0 - 6.0 % 03/14/2019 8:47 PM CDT [facility] Basophils % 0.1 0.0 - 2.0 % 03/14/2019 8:47 PM CDT [facility] Immature Granulocytes 0.8 0 - 1 % 03/14/2019 8:47 PM CDT [facility] Neutrophil Absolute 20.98(H) 2.01 - 7.14 x10E9/L 03/14/2019 8:47 PM CDT [facility] Lymphocytes Absolute 0.86(L) 1.07 - 3.94 x10E9/L 03/14/2019 8:47 PM CDT [facility] Monocytes Absolute 0.91 0.26 - 1.07 x10E9/L 03/14/2019 8:47 PM CDT [facility] Eosinophils Absolute 0.00 0 - 0.47 x10E9/L 03/14/2019 8:47 PM CDT [facility] Basophils Absolute 0.03 0 - 0.08 x10E9/L 03/14/2019 8:47 PM CDT [facility] Immature Granulocytes Absolute 0.18(H) 0.00 - 0.06 x10E9/L 03/14/2019 8:47 PM CDT [facility] nRBC Auto 0 /100 WBC 03/14/2019 8:47 PM CDT [facility] Blood BLOOD SPECIMEN / Unknown Lab Venipuncture / Unknown 03/14/2019 8:31 PM CDT 03/14/2019 8:37 PM CDT Shavon Velez MD LAB - HEMATOLOGY ORD ERABLES [facility] [address] [place], [place] [phone] * HEPATITIS B SURFACE ANTIGEN W RFLX CONFIRMATION (03/14/2019 8:31 PM CDT) HBsAg Non Reactive Non Reactive 03/14/2019 9:24 PM CDT [facility] Blood BLOOD SPECIMEN / Unknown Lab Venipuncture / Unknown 03/14/2019 8:31 PM CDT 03/14/2019 8:37 PM CDT Shavon Velez MD LAB - CHEMISTRY KJ [facility] [address] [place] [address] * BLOOD TYPE VERIFICATION (03/14/2019 6:04 PM CDT) ABO O 03/14/2019 6:46 PM CDT [facility] Rh Type Positive 03/14/2019 6:46 PM CDT [facility] Blood Bank BLOOD SPECIMEN / Unknown Lab Venipuncture / Unknown 03/14/2019 6:04 PM CDT 03/14/2019 6:12 PM CDT Ranulfo Burton MD LAB - BLOOD BANK ORD ERABLES Performing Organization Address [facility] Co de Phone Number [facility] [address] [place] [address] * TYPE + SCREEN PANEL (03/14/2019 4:41 PM CDT) Only the most recent of2 resultswithin the time period is included. ABO O 03/14/2019 6:13 PM CDT [facility] Rh Type Positive 03/14/2019 6:13 PM CDT [facility] Comment:History checked. Col lect retype. Antibody Screen Negative 03/14/2019 6:13 PM CDT [facility] Blood Bank BLOOD SPECIMEN / Unknown Lab Venipuncture / Unknown 03/14/2019 4:41 PM CDT 03/14/2019 5:39 PM CDT Concha Terry MD LAB - BLOOD BANK ORDERABLES Performing Organization Address City/[facility]/ZIP Co de Phone Number [facility] [address] [place] [address] * CHLAMYDIA + GC AMPLIFIED PROBE (03/14/2019 12:50 AM CDT) Chlamydia Amplified Probe Negative Negative 03/15/2019 11:18 AM CDT [facility] GC Amplified Probe Negative Negative 03/15/2019 11:18 AM CDT [facility] Microbiology ENTIRE ENDOCERVIX / Unknown Collection / Unknown 03/14/2019 12:50 AM CDT 03/14/2019 1:16 AM CDT Narrative [facility] - 03/15/2019 11:18 AM CDT Results based on detection/no detection of ribosomal RNA by amplified method. Testing could not be performed successfully. If clinically indicated a new sample should be submitted for testing. Leanne Hernandez MD LAB - MICROBIOLOGY O AVERY [facility] [address] [place] [address], [facility] [phone] * TRICHOMONAS RAPID TEST (03/14/2019 12:49 AM CDT) Trichomonas Rapid Test Negative Negative 03/14/2019 1:33 AM CDT [facility] Microbiology VAGINAL SWAB / Unknown Collection / Unknown 03/14/2019 12:49 AM CDT 03/14/2019 1:15 AM CDT Leanne Hernandez MD LAB - MICROBIOLOGY O AVERY Performing Organization Address City/[facility]/ZIP Co de Phone Number [facility] [address] [place] [address] * CULTURE STREP B (03/14/2019 12:49 AM CDT) Pathologist [facility] Culture Strep B Negative for beta-hemolytic Streptococcus Group B JACKELIN 03/17/2019 7:09 AM CDT [facility] Microbiology MISCELLANEOUS SAMPLES / Unknown Collection / Unknown 03/14/2019 12:49 AM CDT 03/14/2019 1:16 AM CDT Leanne Hernandez MD LAB - MICROBIOLOGY O AVERY [facility] [address] [place] [address], [facility] [phone] * DRUG SCREEN TOX URINE PANEL (03/14/2019 12:49 AM CDT) Amphetamines Screen Urine Not Detected Not Detected 03/14/2019 1:58 AM CDT [facility] Barbiturates Screen Urine Not Detected Not Detected 03/14/2019 1:58 AM CDT [facility] Benzodiazepines Screen Urine Not Detected Not Detected 03/14/2019 1:58 AM CDT [facility] Cannabinoids Screen Urine Not Detected Not Detected 03/14/2019 1:58 AM CDT [facility] Cocaine Screen Urine Not Detected Not Detected 03/14/2019 1:58 AM CDT [facility] Methadone Screen Urine Not Detected Not Detected 03/14/2019 1:58 AM CDT [facility] Opiate Screen Urine Not Detected Not Detected 03/14/2019 1:58 AM CDT [facility] Phencyclidine Screen Urine Not Detected Not Detected 03/14/2019 1:58 AM CDT [facility] Urine URINE / Unknown Collection / Unknown 03/14/2019 12:49 AM CDT 03/14/2019 1:16 AM CDT [facility] - 03/14/2019 1:58 AM CDT This drug screen is designed for MEDICAL purposes only. It is not to be used for legal purposes, including but not limited to worker's comp, police investigations, occupational issues, child custody, etc. Any positive result is only presumptive and must be confirmed with a separate confirmatory test ordered by the physician. Drug Screening Test Cutoff Values: AMPHETAMINES 1000 ng/mL BARBITURATES 200 ng/mL BENZODIAZEPINES 200 ng/mL CANNABINOIDS(THC) 50 ng/mL COCAINE 300 ng/mL METHADONE 300 ng/mL OPIATES 300 ng/mL PHENCYCLIDINE(PCP)25 ng/mL Leanne Hernandez MD LAB - URINE CHEMISTR Y ORDERABLES [facility] [id number] [place] [address] * (ABNORMAL) URINE MICROSCOPIC ONLY REFLEX TO CULTURE (03/14/2019 12:20 AM CDT) Reflex Status Culture to follow 03/14/2019 1:28 AM CDT [facility] RBC UA 21-50(A) None Seen, 0-2, 3-5 # /hpf 03/14/2019 1:28 AM CDT [facility] WBC UA 51-100(A) None Seen, 0-5 # /hpf 03/14/2019 1:28 AM CDT [facility] Bacteria UA None Seen None Seen 03/14/2019 1:28 AM CDT [facility] Squamous Epithelial Cells 0-2 None Seen, 0-2, 3-5 /hpf 03/14/2019 1:28 AM CDT [facility] Mucus UA 2+ /LPF 03/14/2019 1:28 AM CDT [facility] Urine URINE SPECIMEN OBTAINED BY CLEAN CATCH PROCEDURE / Unknown Collection / Unknown 03/14/2019 12:20 AM CDT 03/14/2019 1:16 AM CDT Narrative [facility] - 03/14/2019 1:28 AM CDT Leanne Hernandez MD LAB - URINALYSIS ORD ERABLES [facility] [address] [place] [address] * (ABNORMAL) URINALYSIS REFLEX MICROSCOPIC REFLEX CULTURE (03/14/2019 12:20 AM CDT) Color UA Yellow Straw, Yellow 03/14/2019 1:28 AM CDT [facility] Clarity UA Slt Cloudy(A) Clear 03/14/2019 1:28 AM CDT [facility] Glucose UA 2+(A) Negative 03/14/2019 1:28 AM CDT [facility] Bilirubin UA Negative Negative 03/14/2019 1:28 AM CDT [facility] Ketone UA 2+(A) Negative 03/14/2019 1:28 AM CDT [facility] Specific [place] UA 1.020 1.005 - 1.030 03/14/2019 1:28 AM CDT [facility] Blood UA 3+(A) Negative 03/14/2019 1:28 AM CDT [facility] pH UA 5.0 5.0 - 8.0 pH 03/14/2019 1:28 AM CDT [facility] Protein UA Negative Negative 03/14/2019 1:28 AM CDT [facility] Urobilinogen UA Negative Negative mg/dL 03/14/2019 1:28 AM CDT [facility] Nitrite UA Negative Negative 03/14/2019 1:28 AM CDT [facility] Leukocyte UA 2+(A) Negative 03/14/2019 1:28 AM CDT [facility] Urine Microscopy Urine microscopy to follow 03/14/2019 1:28 AM CDT [facility] Reflex Status Culture to follow 03/14/2019 1:28 AM CDT [facility] Urine URINE SPECIMEN OBTAINED BY CLEAN CATCH PROCEDURE / Unknown Collection / Unknown 03/14/2019 12:20 AM CDT 03/14/2019 1:16 AM CDT Narrative [facility] - 03/14/2019 1:28 AM CDT Ascorbic Acid can cause false negative urine strip tests for blood, glucose, nitrite, and bilirubin. Leanne Hernadnez MD LAB - URINALYSIS ORD ERABLES Performing Organization Address City/[facility]/ZIP Co de Phone Number [facility] [address] [place] [address] * CULTURE URINE (03/14/2019 12:20 AM CDT) Culture Urine No growth (<100 CFU/mL) JACKELIN 03/15/2019 6:50 AM CDT [facility] Urine URINE SPECIMEN OBTAINED BY CLEAN CATCH PROCEDURE / Unknown Collection / Unknown 03/14/2019 12:20 AM CDT 03/14/2019 1:16 AM CDT Leanne Hernandez MD LAB - MICROBIOLOGY O RDERABLES Performing Organization Address City/[facility]/ZIP Co de Phone Number [facility] [address] [phone] * (ABNORMAL) COMPREHENSIVE METABOLIC PANEL (03/14/2019 12:19 AM CDT) Glucose 154(H) 74 - 106 mg/dL 03/14/2019 2:04 AM CDT [facility] Sodium 132(L) 136 - 145 mmol/L 03/14/2019 2:04 AM CDT [facility] Potassium 3.6 3.5 - 5.1 mmol/L 03/14/2019 2:04 AM CDT [facility] Chloride 101 98 - 107 mmol/L 03/14/2019 2:04 AM CDT [facility] CO2 22 22 - 31 mmol/L 03/14/2019 2:04 AM CDT [facility] Calcium 6.8(LL) 8.5 - 10.1 mg/dL 03/14/2019 2:04 AM CDT [facility] Anion Gap 9 8 - 16 mmol/L 03/14/2019 2:04 AM CDT [facility] BUN 6(L) 7 - 21 mg/dL 03/14/2019 2:04 AM CDT [facility] Creatinine 0.54 0.50 - 1.30 mg/dL 03/14/2019 2:04 AM CDT [facility] Alkaline Phosphatase 93 38 - 126 U/L 03/14/2019 2:04 AM CDT [facility] ALT 17 13 - 61 U/L 03/14/2019 2:04 AM CDT [facility] AST 14 5 - 40 U/L 03/14/2019 2:04 AM CDT [facility] Protein Total 6.9 6.4 - 8.2 gm/dL 03/14/2019 2:04 AM CDT [facility] Albumin 2.8(L) 3.4 - 5.0 gm/dL 03/14/2019 2:04 AM CDT [facility] Bilirubin Total 0.6 0.2 - 1.0 mg/dL 03/14/2019 2:04 AM CDT [facility] eGFR by MDRD >60 >60 mL/min/1.7 3m2 03/14/2019 2:04 AM CDT [facility] eGFR by MDRD >60 >60 mL/min/1.7 3m2 03/14/2019 2:04 AM T [facility] Blood BLOOD SPECIMEN / Unknown Venipuncture / Unknown 03/14/2019 12:19 AM CDT 03/14/2019 1:17 AM CDT Leanne Hernandez MD LAB - CHEMISTRY KJ HALLMAN [facility] [address] [place] [address] * PATHOLOGY TISSUE FOR DERMATOLOGY (05/25/2012 12:00 AM CDT) Result CASE: [id number] PATIENT: REJI STALLINGS PATHOLOGIC DIAGNOSIS: Left post shoulder: COMPOUND MELANOCYTIC NEVUS CLINICAL DATA: Material from: [facility] [address] [place] [id number] Received from [facility], at the request of Dr. Lauren Jackson, are 1 slide(s) labeled [id number]. Irregular nevus. *Consult is performed on recut at the request of the ordering physician and will be kept on file. Any additional sections, special stains, or immunohistochemical stains performed by our laboratory will be kept here on file. MICROSCOPIC DESCRIPTION: There are nests of melanocytes at the dermal-epidermal junction and within the dermis. Final Diagnosis performed by Talia Bradshaw M.D. Electronically signed 05/25/2012 2:06:56PM [facility] Comment: Performed at: Dermatopathology Laboratory [facility] - Department of Dermatology [address] [place] [address], [address] [place] [address] Phone number: [phone] Toll Free: [phone] FAX: [phone] 05/25/2012 05/25/2012 Historical Provider MD LAB - PATHOLOGY/C YTOLOGY ORDERABLES [facility] [address] [place] [address]. [address] Lab [address] [phone] Care Teams Mark Up Designer Relationship Specialty Start Date End Date Nithin Merida MD [address] [place] [address] PCP - General Family Medicine 03/14/19
[2025-01-02 10:36] VITALS: BP 110/73; PULSE 79; RESP 18; TEMP 36.6; O2SAT 98
--- NOTE | 2025-01-02 11:56 | ED.GENADULT ---
HPI - General Adult General Chief complaint: Upper Respiratory Infection Stated complaint: bronchitis Time Seen by Provider: 01/02/25 11:56 Source: patient Mode of arrival: ambulatory Limitations: no limitations History of Present Illness HPI narrative: Su is a 34-year-old female here with symptoms of cough, wheezing, and chest tightness. Symptoms improved with albuterol use. She does have a history of asthma. She denies fevers or congestion. She denies nausea vomiting diarrhea. she reports some right ear pain /pressure. she has been using her home albuterol. She states has no daily controller inhaler. She states was recently diagnosed with bronchitis and put on a Z-Kota and oral steroids. She reports she feels she needs this same regimen again today As symptoms are the same as last time. All other systems were reviewed and negative unless noted in HPI. Related Data Home Medications ?Medication ?Instructions ?Recorded ?Confirmed ?Last Taken ?Type semaglutide (weight loss) 0.25 0.25 mg subcut Q7D 01/02/25 Unknown History mg/0.5 mL subcutaneous pen injector (Wegovy) Allergies Allergy/AdvReac Type Severity Reaction Status Date / Time nickel Allergy Mild Hives Verified 01/02/25 11:50 Review of Systems Review of Systems: CONSTITUTIONAL: Denies fever, chills, or sweats. EYES: Denies visual changes, redness, or discharge. ENT: Denies rhinorrhea, congestion, sore throat. reports right ear otalgia. CARDIOVASCULAR: Denies chest pain, palpitations, or edema. RESPIRATORY: reports cough and dyspnea. reports chest tightness with cough. GASTROINTESTINAL: Denies abdominal pain, nausea, vomiting, or diarrhea. GENITOURINARY: Denies dysuria or hematuria. SKIN: Denies rash or itching. MUSCULOSKELETAL: Denies back pain, joint pain, or myalgia. NEUROLOGIC: Denies headache, numbness, or weakness. PSYCHIATRIC: Denies anxiety or depression. All other systems reviewed are negative, except as documented in HPI. [facility] Past Medical History Medical History Diverticulitis of colon Asthma Anxiety BMI 28.0-28.9,adult Lump of skin of left upper extremity Acute non-recurrent maxillary sinusitis Encounter for wellness examination in adult Anemia Surgical History Surgical History Hx of excision of mass excisional biopsy left shoulder mass most consistent with lipoma measuring 4 x 3 cm 12/31/23 [facility] [place] teeth extracted (~2010) Family History Family History Mother Family history non-contributory Social History Social History Years smoked: 2 Smoking status: Former smoker Smoking end date: 11/24/07 Alcohol intake: current Drinks per week: 2 Alcohol use details: wine every other weekend Substance use: never Substance use type: does not use Lack of Transportation: No Lack of Food: Never True Current Housing: I Have Housing Concerned About Future Housing: No Difficulty Paying Gas/Electric Bills: No Difficulty Paying for Meds: No Currently Unemployed: No Education: Trade/Vocational Certificate Difficulty w/ Childcare or Family Care: No Living arrangements: with family Spiritual care concerns: No Comments At time of signature, I have reviewed and agree with nursing past medical, surgical, social and family history unless otherwise noted. Please see nursing chart for further information. There is no relevant family history pertinent to the presenting complaint. Exam Narrative: GENERAL: This is a well-nourished, well-developed patient, in no apparent distress. HEAD: normocephalic, atraumatic. EYES: Sclera clear/white. Vision is grossly intact. EARS: External ears normal, auditory canals clear and without drainage, TMs with fluid level and without perforation. Hearing grossly intact. NOSE: External nose normal with no obvious nasal discharge, nares without redness, no rhinorrhea. THROAT: Mucous membranes moist, posterior pharynx cobblestoning. NECK: Neck supple. trachea midline. CARDIOVASCULAR: Regular rate and rhythm without murmurs, gallops, or rubs. RESPIRATORY: Breath sounds with faint expiratory Wheezing and diminished in bases bilaterally. prolonged expiratory phase. audible wheezing without stethoscope. SKIN: warm, Dry, intact with no suspicious lesions or rash, good texture and turgor. NEURO: awake, alert, and oriented to person, place and time. There were no obvious focal neurologic abnormalities. EXTREMITIES: No joint tenderness, effusion, or edema noted. . Course Course Emergency Course: Patient is aware of diagnosis, understands and agrees to treatment plan. Anticipatory guidance given. Patient agrees to follow-up as directed and is aware of reasons to seek care at the emergency department. Portions of this record may have been created with voice recognition software Level of Care: Express Care Visit Vital Signs Vital signs: Vital Signs Temperature 36.6 C 01/02/25 10:36 Pulse Rate 79 01/02/25 10:36 Respiratory Rate 18 01/02/25 10:36 Blood Pressure 110/73 01/02/25 10:36 Pulse Oximetry 98 01/02/25 10:36 Oxygen Delivery Room Air 01/02/25 10:36 Temperature 36.6 C 01/02/25 10:36 Pulse Rate 79 01/02/25 10:36 Respiratory Rate 18 01/02/25 10:36 Blood Pressure 110/73 01/02/25 10:36 Pulse Oximetry 98 01/02/25 10:36 Oxygen Delivery Room Air 01/02/25 10:36 Medical Decision Making MDM Narrative Medical decision making narrative: Patient with history of viral illness and bronchitis about 1 month ago. Patient with history of asthma, wheezing, and chest tightness. Patient states she felt significant improvement with Z-Kota and oral steroids with similar symptoms. I offered but patient declined chest x-ray today. Will treat with Z-Kota and oral steroids as this worked for patient while in the past. In addition recommended daily Zyrtec and daily controller inhaler. I reviewed and prescriptions today along with MDI instructions. I discussed physical exam findings. I advised supportive measures and signs and symptoms to go to the emergency room. Patient is appropriate for outpatient treatment and follow-up. Differential Diagnosis Differential Diagnosis: Asthma exacerbation versus upper respiratory infection versus pneumonia Vital Signs Vital Signs: Vital Signs Temperature 36.6 C 01/02/25 10:36 Pulse Rate 79 01/02/25 10:36 Respiratory Rate 18 01/02/25 10:36 Blood Pressure 110/73 01/02/25 10:36 Pulse Oximetry 98 01/02/25 10:36 Oxygen Delivery Room Air 01/02/25 10:36 Temperature 36.6 C 01/02/25 10:36 Pulse Rate 79 01/02/25 10:36 Respiratory Rate 18 01/02/25 10:36 Blood Pressure 110/73 01/02/25 10:36 Pulse Oximetry 98 01/02/25 10:36 Oxygen Delivery Room Air 01/02/25 10:36 reviewed Discharge Plan Discharge Clinical Impression: Bronchitis, Asthma Patient Disposition: Home, Self-Care Condition: Stable Instructions: Antibiotic Form, Asthma (ED), Allergies (ED), Acute Cough (ED) Additional Instructions: You were diagnosed with bronchitis today. You also have an exacerbation of your asthma. Please take all medications as prescribed and follow printed instructions here. You are starting a daily controller inhaler for your asthma. Follow-up with your PCP in 1-2 weeks. If symptoms are not improving on this regimen, please return to clinic or follow up with PCP. If symptoms are worsening or you develop shortness of breath or trouble breathing, proceed immediately to the ER. Patient Language: Macedonian Prescriptions: New prednisone 20 mg tablet 60 mg PO DAILY Qty: 5 0RF Dulera 100-5 mcg/actuation HFA aerosol inhaler 2 puff inhalation Q12H Qty: 13 0RF azithromycin 250 mg tablet See Rx Instructions .ROUTE .COMPLEX Qty: 6 0RF Rx Instructions: For 250 mg dose pack: take 500 mg today (day 1), then 250 mg for 4 days (days 2-5) albuterol sulfate [Ventolin HFA] 90 mcg/actuation HFA aerosol inhaler 2 puff inhalation QID PRN (Reason: shortness of breath or wheezing) Qty: 8.5 0RF albuterol sulfate 2.5 mg /3 mL (0.083 %) solution for nebulization 2.5 mg inhalation Q4H PRN (Reason: shortness of breath or wheezing) Qty: 90 0RF No Action prednisone 50 mg tablet 50 mg PO DAILY Qty: 5 0RF Wegovy 0.25 mg/0.5 mL pen injector 0.25 mg subcut Q7D albuterol sulfate 90 mcg/actuation HFA aerosol inhaler 1 - 2 puff inhalation Q4H PRN (Reason: shortness of breath or wheezing) Qty: 8.5 5RF bupropion HCl [Wellbutrin XL] 150 mg tablet extended release 24 hr 150 mg PO QAM Qty: 30 5RF escitalopram oxalate [Lexapro] 5 mg tablet 5 mg PO DAILY Qty: 30 11RF azithromycin 250 mg tablet See Rx Instructions PO .COMPLEX Qty: 6 0RF Rx Instructions: take 500 mg today (day 1), then 250 mg for 4 days (days 2-5) PO Follow-up/Referrals: Chi Berrios MD [Primary Care Provider] - Time of Disposition: 12:18
== END 2025-01-02 12:29 | disposition home or self-care (01) ==
PROVIDERS: Emergency Provider Nurse Practitioner; PCP Family Medicine
DX: J40 Bronchitis, not specified as acute or chronic (principal); K57.30 Diverticulosis of large intestine without perforation or abscess without bleeding; F41.9 Anxiety disorder, unspecified; D64.9 Anemia, unspecified; Z87.891 Personal history of nicotine dependence
CPT/HCPCS: 99213; G0463